=== PATIENT | female | born 1950 | race Caucasian/White ===

== ENCOUNTER 2021-01-07 13:12 | Emergency (ER) | payer MEDICARE ==
--- NOTE | 2021-01-07 13:55 | ERPHSYRPT ---
- History of Present Illness Time Seen by Provider: 01/07/21 13:37 Patient Subjective Stated Complaint: Pt slipped on the wooden porch and injured her left elbow and feels like she over exerted her muscles in her shoulders/neck/and chest Triage Nursing Assessment: Pt brought to the ER by her , hypertensive, rates pain in the elbow as 9/10, denies LOC, denies hitting her head, denies any other injuries, swelling to left elbow, able to straighten arm out, doesn't appear to be in any distress Physician History: 70 years old female with history of hypertension, hyperlipidemia, coronary artery disease status post stenting presented in the ER after she slipped on wet wooden porch leading to fall backward. She was able to hold herself with her left elbow which hit the floor. She has swelling left elbow with moderate to severe sharp pain with movements and no numbness tingling or weakness of left upper extremity distal to elbow. She is complaining of some soreness in the upper shoulder area muscles bilaterally when she went down she probably ajit her muscles. No spinal/midline tenderness. No chest pain palpitations or shortness of breath before or after fall. No headache dizziness or lightheadedness. No injury anywhere else. Occurred: just prior to arrival Method of Injury: fell Quality: sharpness Severity of Pain-Max: moderate Severity of Pain-Current: moderate Extremities Pain Location: elbow: left Modifying Factors: Improves With: cold therapy, immobilization, rest. Worsens With: movement Associated Symptoms: back pain Allergies/Adverse Reactions: fentanyl Allergy (Verified 01/07/21 13:26) ibuprofen Allergy (Verified 01/07/21 13:26) Penicillins Allergy (Verified 01/07/21 13:26) Sulfa (Sulfonamide Antibiotics) Allergy (Verified 01/07/21 13:26) Home Medications: Aspirin 81 gm Chew [Baby Aspirin 81 mg Chew] 81 mg PO DAILY 01/07/21 [History] Atorvastatin Calcium [Lipitor 40Mg] 40 mg PO DAILY 01/07/21 [History] Metoprolol Tartrate 25 mg [Lopressor 25MG Tab] 25 mg PO BID 01/07/21 [History] Prasugrel HCL 10 MG [Effient 10 MG TABLET] 10 mg PO DAILY 01/07/21 [History] Hx Tetanus, Diphtheria Vaccination/Date Given: No (UNSURE) Hx Influenza Vaccination/Date Given: No Hx Pneumococcal Vaccination/Date Given: No Travel Risk - International Travel Have you traveled outside of the country in past 3 weeks: No - Coronavirus Screening Are you exhibiting any of the following symptoms?: No Close contact with a COVID-19 positive Pt in past 14-21 Days: No - Vaccine Status Have you recieved a Covid-19 vaccination: Yes [employer]: [employer] - Vaccination Dates Date of 2cond Vaccination (if applicable): 03/2020 - Review of Systems Constitutional: No Symptoms Eyes: No Symptoms Ears, Nose, & Throat: No Symptoms Respiratory: No Symptoms Cardiac: No Symptoms Abdominal/Gastrointestinal: No Symptoms Genitourinary Symptoms: No Symptoms Musculoskeletal: Injury, Joint Pain, Myalgias Skin: No Symptoms Neurological: No Symptoms Psychological: No Symptoms Endocrine: No Symptoms Hematologic/Lymphatic: No Symptoms Immunological/Allergic: No Symptoms - Past Medical History Pertinent Past Medical History: No Neurological History: No Pertinent History ENT History: No Pertinent History Cardiac History: Coronary Artery Disease Respiratory History: No Pertinent History Endocrine Medical History: No Pertinent History Musculoskeletal History: No Pertinent History GI Medical History: No Pertinent History History: No Pertinent History Psycho-Social History: No Pertinent History Female Reproductive Disorders: No Pertinent History - Past Surgical History Past Surgical History: Yes Neuro Surgical History: No Pertinent History Cardiac: Cardiac Stent Respiratory: No Pertinent History Gastrointestinal: No Pertinent History Genitourinary: No Pertinent History Musculoskeletal: No Pertinent History Female Surgical History: Hysterectomy - Social History Smoking Status: Former smoker Exposure to second hand smoke: No Drug Use: none Patient Lives Alone: No - Female History Hx Now: No - Nursing Vital Signs Nursing Vital Signs: Initial Vital Signs Temperature 96.9 F 01/07/21 13:16 Pulse Rate 72 01/07/21 13:16 Blood Pressure 148/71 01/07/21 13:16 O2 Sat by Pulse Oximetry 96 01/07/21 13:16 Pain Scale Pain Intensity 6 - Physical Exam General Appearance: no apparent distress, alert Eyes, Ears, Nose, Throat Exam: normal ENT inspection, TMs normal, pharynx normal, moist mucous membranes Neck Exam: normal inspection, non-tender, supple, full range of motion, No Brudzinski Cardiovascular/Respiratory Exam: chest non-tender, normal breath sounds, regular rate/rhythm, heart sounds normal Abdominal Exam: non-tender, soft Back Exam: normal inspection, normal range of motion, No CVA tenderness, No vertebral tenderness Shoulder Exam: normal inspection, non-tender, no evidence of injury, normal ROM Elbow/Forearm Exam: bone tenderness, limited ROM (Left elbow with posterior swel ling and tenderness.), soft tissue tenderness (Posterior left), swelling Wrist Exam: normal inspection, non-tender, no evidence of injury, normal ROM Hand Exam: normal inspection, non-tender, no evidence of injury, normal ROM Neuro/Tendon Exam: normal sensation, normal motor functions Mental Status Exam: alert, oriented x 3, cooperative Skin Exam: normal color SpO2 Interpretation: normal SpO2: 96 O2 Delivery: Room Air Ordered Tests: Active Orders 24 hr Category Date Time Status CHEST 2 VIEWS (PA AND LAT) Stat Exams 01/07/21 14:22 Completed ELBOW (MINIMUM 3 VIEWS) Stat Exams 01/07/21 00:00 Completed - Progress Progress: unchanged, pain not gone completely, re-examined Progress Note: 01/07/21 15:03 She is offered pain medications which she refused. Rule out fracture dislocation left elbow. Placed in sling, recommended ice. Outpatient follow- up. Did not hit her head, no loss of consciousness, no neck pain or midline tenderness. Do not think she needs any other work-up. It was a clear mechanical fall and is stable for discharge. Counseled pt/family regarding: diagnosis, need for follow-up, rad results - Departure Departure Disposition: Home Clinical Impression: Contusion of left elbow, initial encounter, Muscle strain of upper back Fall Qualifiers: Encounter type: initial encounter Qualified Code(s): W19.XXXA - Unspecified fall, initial encounter Condition: Stable Critical Care Time: No Referrals: FABIO MARQUES NP [Primary Care Provider] - Follow up/PCP as directed (In 2 days for reevaluation) Instructions: Contusion (DC), Preventing Falls Additional Instructions: Take Tylenol as needed for pain. Follow-up with primary care/orthopedic surgery for reevaluation. Return to ER for any worsening. Apply intermittent ice. Avoid exertional activities with left upper extremity. Return to ER if having worsening pain, numbness tingling weakness, headache etc.
--- NOTE | 2021-01-07 14:31 | XRAY ---
Indication: Status post fall. Comparison: None PA/lateral chest hyperinflated and clear. Heart is not enlarged. Bony thorax intact with mild osteopenia and degenerative changes. Impression: Nonacute hyperinflated chest.
--- NOTE | 2021-01-07 14:33 | XRAY ---
Indication: Pain following fall. Comparison: None 3 view left elbow demonstrates posterior soft tissue swelling, osteopenia , and tiny olecranon process spur. No other bony, articular, or soft tissue abnormalities.
[2021-01-07 15:05] VITALS: O2SAT 96
[2021-01-07 15:18] VITALS: BP 135/76; PULSE 62
== END 2021-01-07 15:18 | disposition home or self-care (01) ==
LOC: ED 13:12
DX: S50.02XA Contusion of left elbow, initial encounter (principal); S29.012A Strain of muscle and tendon of back wall of thorax, initial encounter; W01.0XXA Fall on same level from slipping, tripping and stumbling without subsequent striking against object, initial encounter; Y92.008 Other place in unspecified non-institutional (private) residence as the place of occurrence of the external cause; Z79.02 Long term (current) use of antithrombotics/antiplatelets
CPT/HCPCS: 71046; 73080; 99283